=== PATIENT | female | born 1995 | race African-American/Black ===

== ENCOUNTER 2019-09-01 21:21 | Emergency (ER) | payer MEDICAID, OTHER ==
[~2019-09-01] VITALS: Ht 165.1 cm; Wt 81.6 kg
[~2019-09-01 21:21] MED LIST: AMOXICILLIN500 MG ORAL; IBUPROFEN600 MG ORAL; NKM; PREDNISONE20 MG ORAL
--- NOTE | 2019-09-01 22:05 | NUR ---
ED Nurse Note: RECIEVED PT FROM HOME WITH C/O FLU LIKE S/S INTERMITTENTLY FOR PAST 3 DAYS, DENIES FEVERS, NAUSEA OR VOMITING OR ANY OTHER COMPLAINTS. PT NOTED WITH CONGESTION AND MILS COUGH, ALSO C/O SORETHROAT AND HEADACHE.
[2019-09-01] MEDS ORDERED: PSEUDOEPHEDRINE60 MG PO (22:33)
[2019-09-01] MEDS ORDERED: ZITHROMAX250 MG ORAL (22:33)
[2019-09-01] MEDS ORDERED: ALBUTEROL SULF8.5 GM INH (22:33)
--- NOTE | 2019-09-01 22:34 | Emergency Room Report ---
History of Present Illness General Chief Complaint: Flu Like Symptoms Source: Patient Present Illness HPI Is a 23-year-old female with history of asthma but has not had to use inhaler for years. She presents with chief complaint of cough and congestion. Also has sinus congestion. The congestion and fever and body pain been ongoing for 2 days. She has coughing for about a month. No nausea no vomiting. Fever is low-grade. Cthb-npy-pyobbws medicine is not helping. No other complaint. Worse with lying flat and exertion. Allergies: Coded Allergies: AMOXICILLIN (Verified Allergy, Unknown, 09/01/19) Patient History Past Medical History: see triage record, old chart reviewed, asthma Past Surgical History: none Pertinent Family History: none Social History: Denies: smoking Last Menstrual Period: 08/10/19 Now: No Immunizations: other Reviewed Nursing Documentation: PMH: Agreed; PSxH: Agreed Nursing Documentation-PMH Past Medical History: No History, Except For Hx Cardiac Problems: No Hx Asthma: Yes Hx Cancer: No Hx Gastrointestinal Problems: No Hx Neurological Problems: No Review of Systems Constitutional: Reports: chills, fever, malaise Eye: Denies: eye pain, blurred vision ENT: Reports: nose congestion; Denies: ear pain, throat swelling Respiratory: Reports: cough, shortness of breath Cardiovascular: Denies: chest pain, palpitations Gastrointestinal: Denies: abdominal pain, diarrhea, nausea, vomiting Musculoskeletal: Denies: back pain, joint pain Skin: Denies: rash Neurological: Denies: headache, numbness Endocrine: Denies: increased thirst, increased urine Hematologic/Lymphatic: Denies: easy bruising All Other Systems: negative except mentioned in HPI Physical Exam Vital Signs Date Time Temp Pulse Resp B/P (MAP) Pulse Ox O2 Delivery O2 Flow Rate FiO2 09/01/19 21:50 98.1 96 14 127/78 (94) 96 Room Air Vitals normal Sp02 EP Interpretation: reviewed, normal General Appearance: well appearing, no apparent distress, alert Head: normocephalic, atraumatic Eyes: bilateral eye PERRL, bilateral eye EOMI ENT: hearing grossly normal, normal pharynx Neck: full range of motion, supple, no meningismus Respiratory: chest non-tender, lungs clear, normal breath sounds Cardiovascular #1: regular rate, rhythm, no murmur Gastrointestinal: normal bowel sounds, non tender, no mass, no organomegaly, no bruit, non-distended Musculoskeletal: back normal, normal range of motion, gait/station normal Psychiatric: mood/affect normal Medical Decision Making Diagnostic Impression: Primary Impression: URI (upper respiratory infection) Qualified Codes: J06.9 - Acute upper respiratory infection, unspecified Additional Impressions: Cough Asthma Qualified Codes: J45.21 - Mild intermittent asthma with (acute) exacerbation ER Course Patient with URI symptoms. Most likely viral in nature. The fact that she has a cough ongoing for a month, will put her on antibiotics to cover for atypical pneumonia. She may have recurrence of her asthma. Right now there is no wheezing. No evidence of ACS, PE, dissection to name a few. Will discharge home. Last Vital Signs Date Time Temp Pulse Resp B/P (MAP) Pulse Ox O2 Delivery O2 Flow Rate FiO2 09/01/19 21:50 98.1 96 14 127/78 (94) 96 Room Air Status: improved Disposition: HOME, SELF-CARE Condition: Stable Scripts Azithromycin* (ZITHROMAX*) 250 Mg Tablet 250 MG ORAL DAILY, #6 TAB 0 Refills Take two tables once daily for 1 day, then one tablet once daily for 4 days. Prov: Sanju Gauthier MD 09/01/19 Pseudoephedrine Hcl* (SUDAFED*) 60 Mg Tablet 60 MG PO Q6H, #30 TAB Prov: Sanju Gauthier MD 09/01/19 Albuterol Sulfate* (ALBUTEROL SULFATE MDI*) 8.5 Gm Hfa.aer.ad 2 PUFF INH Q4H PRN for cough/wheezing, #1 EA 0 Refills Prov: Sanju Gauthier MD 09/01/19 Additional Instructions: Increase fluids. Follow-up with your doctor in 7 days. return if symptoms worsen. Sanju Gauthier MD Sep 01, 2019 22:34
[2019-09-01 22:40] VITALS: BP 127/78
--- NOTE | 2019-09-01 22:40 | NUR ---
ER DISCHARGE NOTE: Patient is cleared to be discharged per ERMD, pt is aox4, on room air, with stable vital signs. pt was given dc and prescription instructions, pt was able to verbalize understanding, pt id band removed without complications. pt is able to ambulate with steady gait. pt took all belongings.
== END 2019-09-01 22:50 | disposition home or self-care (01) ==
LOC: EMR 22:45
DX: J06.9 Acute upper respiratory infection, unspecified (principal); R05 Cough; J45.21 Mild intermittent asthma with (acute) exacerbation; Z88.0 Allergy status to penicillin
CPT/HCPCS: 99282

== ENCOUNTER 2020-03-28 02:33 | Emergency (ER) | payer MEDICAID ==
[~2020-03-28] VITALS: Ht 165.1 cm; Wt 77.1 kg
[~2020-03-28 02:33] MED LIST changes: +ALBUTEROL SULF8.5 GM INH; +PSEUDOEPHEDRINE60 MG PO; +ZITHROMAX250 MG ORAL
[2020-03-28 02:52] VITALS: BP 127/89
--- NOTE | 2020-03-28 03:01 | Emergency Room Report ---
History of Present Illness General Chief Complaint: Sore Throat Present Illness HPI Patient is a 24-year-old female who reports having increased sore throat for the past 2 days. Increased difficulty with swallowing. Previous episodes of strep throat in the past. States she is had some allergic reaction to amoxicillin. Denies any vomiting or shortness of breath. Denies any cough. Allergies: Coded Allergies: AMOXICILLIN (Verified Allergy, Unknown, 09/01/19) COVID-19 Screening Contact w/high risk pt: No Experienced COVID-19 symptoms?: No COVID-19 Testing performed CAR PUSHER: No Patient History Past Medical History: see triage record Last Menstrual Period: 03/19 Reviewed Nursing Documentation: PMH: Agreed; PSxH: Agreed Nursing Documentation-PMH Hx Cardiac Problems: No Hx Asthma: Yes Hx Cancer: No Hx Gastrointestinal Problems: No Hx Neurological Problems: No Review of Systems All Other Systems: negative except mentioned in HPI Physical Exam Vital Signs Date Time Temp Pulse Resp B/P (MAP) Pulse Ox O2 Delivery O2 Flow Rate FiO2 03/28/20 02:43 98.2 87 18 127/89 (102) 99 Room Air General Appearance: well appearing, no apparent distress, alert, GCS 15 Head: normocephalic, atraumatic ENT: hearing grossly normal, normal voice, tonsillar exudate Neck: full range of motion, supple Respiratory: no respiratory distress, speaking full sentences Cardiovascular #1: normal inspection, regular rate, rhythm Gastrointestinal: normal inspection, non tender, soft Musculoskeletal: normal inspection Neurologic: alert, motor strength/tone normal, medical office technician III-XII nml as tested, oriented x3, normal gait Psychiatric: mood/affect normal Skin: no rash Medical Decision Making Diagnostic Impression: Primary Impression: Acute tonsillitis ER Course Patient presented for sore throat. Differential diagnosis included but was not limited to meningitis, exudative tonsillitis, retropharyngeal abscess, epiglottitis, strep pharyngitis. Patient was noted to have some exam findings consistent with a tonsillitis. No evidence of abscess or uvular deviation at this time. Patient will be treated with oral antibiotics. She was advised to return if worse. Patient was advised to gargle with salt water. The patient is advised to follow up with primary care doctor in 1-2 days. Patient is advised to return if any worsening condition or if any changes in status that are concerning. This report is dictated with [employer] chief of pediatric urology software which may occasionally lead to discrepancies related to use of this software. Last Vital Signs Date Time Temp Pulse Resp B/P (MAP) Pulse Ox O2 Delivery O2 Flow Rate FiO2 03/28/20 02:52 98.2 89 18 127/89 99 Room Air Status: improved Disposition: HOME, SELF-CARE Condition: Stable Scripts Lidocaine HCl 2% Viscous (Lidocaine HCl 2% Viscous) 100 Ml Solution 15 ML ORAL QID, #120 ML Prov: Carlos Alexander MD 03/28/20 Azithromycin* (ZITHROMAX*) 250 Mg Tablet 250 MG ORAL DAILY, #6 TAB 0 Refills Take two tables once daily for 1 day, then one tablet once daily for 4 days. Prov: Carlos Alexander MD 03/28/20 Referrals: NON PHYSICIAN (PCP) Carlos Alexander MD Mar 28, 2020 03:01
[2020-03-28] MEDS ORDERED: ZITHROMAX250 MG ORAL (03:04)
[2020-03-28] MEDS ORDERED: LIDOCAINE VISC100 ML ORAL (03:04)
[2020-03-28 03:10] VITALS: BP 127/89
[2020-03-28] MEDS ORDERED: Lidocaine 2% Visc 15ml soln ORAL ONE (03:15)
== END 2020-03-28 03:10 | disposition home or self-care (01) ==
LOC: EMR 02:54
DX: J03.90 Acute tonsillitis, unspecified (principal); Z88.0 Allergy status to penicillin
CPT/HCPCS: J8540; Z7502; 99282

== ENCOUNTER 2020-04-09 18:23 | Emergency (ER) | payer MEDICAID ==
[~2020-04-09] VITALS: Ht 165.1 cm; Wt 81.6 kg
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
[~2020-04-09 18:23] MED LIST changes: +LIDOCAINE VISC100 ML ORAL
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
[2020-04-09 18:34] VITALS: BP 110/45
--- NOTE | 2020-04-09 18:37 | NUR ---
ED Nurse Note: blood specimen sent to lab.
--- NOTE | 2020-04-09 18:37 | NUR ---
Patricio kamara in EDM - 04/09/20 at 1854 by MERLE ED Nurse Note: URINE SENT TO LAB
[2020-04-09 18:40] LABS: BASOPHILS % (AUTO) 1.2 % (0.0-2.0); EOSINOPHILS % (AUTO) 0.2 % (0.0-3.0); HEMATOCRIT 36.9 % (37.0-47.0); LYMPHOCYTES % (AUTO) 20.6 % (20.0-45.0); MEAN CORPUSCULAR VOLUME 82 FL (80-99); MONOCYTES % (AUTO) 7.4 % (1.0-10.0); NEUTROPHILS % (AUTO) 70.6 % (45.0-75.0); PLATELET COUNT 188 K/UL (150-450); RED CELL DISTRIBUTION WIDTH 13.2 % (11.6-14.8); WHITE BLOOD COUNT 9.4 K/UL (4.8-10.8)
[2020-04-09 18:51] LABS: ANION GAP 13 mmol/L (5-15); BLOOD UREA NITROGEN 10 mg/dL (7-18); CALCIUM 8.9 MG/DL (8.5-10.1); CARBON DIOXIDE 22 MMOL/L (21-32); CHLORIDE 102 MMOL/L (98-107); CREATININE 0.8 MG/DL (0.55-1.30); SODIUM 137 MMOL/L (136-145)
[2020-04-09 18:56] LABS: ALANINE AMINOTRANSFERASE 33 U/L (12-78); ALBUMIN 4.1 G/DL (3.4-5.0); ALKALINE PHOSPHATASE 63 U/L (46-116); ASPARTATE AMINO TRANSFERASE 22 U/L (15-37); BILIRUBIN,TOTAL 0.7 MG/DL (0.2-1.0)
--- NOTE | 2020-04-09 18:56 | NUR ---
ED Nurse Note: GABINO [id number] Anupam at bedside.
--- NOTE | 2020-04-09 19:11 | NUR ---
HAND-OFF: Report given to Hannah Reynolds RN.
--- NOTE | 2020-04-09 19:15 | NUR ---
ED Nurse Note: Recieved report to resume care, pt in bed recieving IV potassium, pt is here on 5150 hold for OD and suicidal attempt, pt is completely dressed, undressed pt, placed on suicidal percautins and environmental check done, pt has patent IV line, pt is lethargic and drowsy but is cooperar
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
[2020-04-09 19:35] VITALS: BP 122/56
[2020-04-09 20:22] LABS: APPEARANCE,URINE SLIGHTLY CLOUDY; BILIRUBIN, URINE NEGATIVE (NEGATIVE); COLOR,URINE PALE YELLOW; GLUCOSE, URINE (UA) NEGATIVE (NEGATIVE); KETONES,URINE 3+ (NEGATIVE); LEUKOCYTE ESTERASE ,URINE 2+ (NEGATIVE); NITRITE,URINE NEGATIVE (NEGATIVE); PH,URINE 5 (4.5-8.0); PROTEIN,URINE NEGATIVE (NEGATIVE); UROBILINOGEN,URINE NORMAL MG/DL (0.0-1.0)
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
[2020-04-09 21:30] VITALS: BP 103/60
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
--- NOTE | 2020-04-09 22:35 | NUR ---
ED Nurse Note: Pt repeat labs drawn and sent, pt tolerated well, no acute changes or increased distress, pt denies pain, sob, or any other discomforts, remains in constant observation by staff, will continue to monitor on suicidal precautions.
[2020-04-09 23:00] VITALS: BP 129/76
[2020-04-10 01:15] VITALS: BP 126/71
--- NOTE | 2020-04-10 01:15 | NUR ---
ED Nurse Note: Pt continues to rest wuietly in bed, pt does arouse and is clm and cooperative, pt ambulated to bathroom, steady gait, denies pain or any discomforts, pt remains on suicidal pecautions with constant observation, also on continous monitoring, repeat labs wnl, will continue to closely monitor while waiting for psych placement.
[2020-04-10 04:00] VITALS: BP 119/68
--- NOTE | 2020-04-10 04:00 | NUR ---
ED Nurse Note: Pt continues to rest in bed quietly, awakens intermittently, ambulates to bathroom, remains on suicidal precautions, no attempts made, on cardiac monitoring, nad or changes noted.
--- NOTE | 2020-04-10 06:00 | NUR ---
ED Nurse Note: Pt awake in bed, ambulted to bathroom, denies any pain or distress, pt is calm and cooperative, denies being suicidal but states "im scared", v/s stable, will continue to monitor while waiting for psych placement.
[2020-04-10 06:10] VITALS: BP 102/67
--- NOTE | 2020-04-10 07:15 | NUR ---
HAND-OFF: Report given to CELSA Reeves.
--- NOTE | 2020-04-10 07:20 | NUR ---
ED Nurse Note: Resieved report from CELSA Olvera. Patient continues to rest in bed quietly, awakens intermittently, remains on suicidal precautions, patient remain on cardiac monitoring, NAD or noted. Sitter Sylvie at bed side.
[2020-04-10 08:53] VITALS: BP 129/75
--- NOTE | 2020-04-10 09:30 | NUR ---
ED Nurse Note: breakfast tray ordered
--- NOTE | 2020-04-10 10:03 | NUR ---
ED Nurse Note: breakfast tray provided, patient awake, AAO x4, VSS at this time, NAD noted. Sitter remain at bed side
--- NOTE | 2020-04-10 11:21 | NUR ---
ED Nurse Note: report given to CELSA Lopez at [facility].
[2020-04-10 12:12] VITALS: BP 115/69
--- NOTE | 2020-04-10 12:12 | NUR ---
ED Nurse Note: Patient was transfered to [facility] via private [employer] transportation unit # [id number], with all belongings. Patient calm and cooperative, AAO x4, VSS at this time, skin is warm to touch. IV line was diacharged, patient was able to ambulate to the gurney with stable gait.
== END 2020-04-10 12:16 | disposition short-term general hospital (02) ==
LOC: EDBD 18:23 → EMR 19:33
DX: T39.1X2A Poisoning by 4-Aminophenol derivatives, intentional self-harm, initial encounter (principal); R00.0 Tachycardia, unspecified; E87.6 Hypokalemia; Y92.9 Unspecified place or not applicable; Z88.0 Allergy status to penicillin
CPT/HCPCS: 36415; 80053; 80307; 81003; 81025; 83735; 84132; 85025; 87086; 93005; 96361; 96365; G0480; G0481; J3480; J7030; U0002; Z7502; 99284; J8499